=== PATIENT | male | born 1950 | race Caucasian/White ===

== ENCOUNTER → 2017-02-23 | Outpatient (CLI) | payer MEDICARE ==
--- NOTE | 2017-02-23 18:12 | PCVCIMAG ---
APPROVED REPORT Exam: Stress Echocardiogram Indication: Hyperlipidemia, Hypertension Patient Location: Echo lab Stress Nurse: Augusta Rossi RN Status: routine Ht: 5 ft 9 in HR: 85 bpm BP: 116/64 mmHg Rhythm: NSR Procedure The patient underwent an Exercise Stress Test using the Primo Protocol. Blood pressure, heart rate, and EKG were monitored. An Echocardiogram was performed by clinical dental technician in four stages in quad fashion. At peak stress, four selected images were obtained and placed side by side with resting images for comparison. Stress Test Details Stress Test: Exercise stress testing was performed using a Primo protocol. HR Resting HR: 85 bpmMax Heart Rate (APMHR): 154 bpm Max HR Achieved: 146 bpmTarget HR (85% APMHR): 130 bpm % of APMHR: 94 HR response to stress: Normal HR response to stress BP Resting BP: 116/64 mmHg Max BP: 154/64 mmHg ECG Resting ECG: Sinus Rhythm Stress ECG: Sinus Rhythm Clinical Reason for Termination: Maximal effort Exercise duration: 6 min 48 sec Highest Stage Achieved: Stage 3: 3.4 mph at 14% grade. Exercise capacity: 9.50 METs Overall Exercise Capacity for Age: Average Pre-Stress Echo The resting Echocardiogram showed normal left ventricular contractility with an estimated Ejection Fraction of about 55-60%. Normal wall motion in all segments on baseline images. Post-Stress Echo The stress Echocardiogram showed normal left ventricular contractility with an estimated Ejection Fraction of about 60-65%. Normal augmentation of wall motion in all segments on post stress images. Clinical No clinical or ECG evidence for ischemia. Conclusion Clinical Response: Non-ischemic Exercise Capacity: Average Stress ECG Response: Non-ischemic Stress Echo Images: Non-ischemic The left ventricle is normal in size and wall thickness in both the rest and stress images. Other Information Study Quality: Good <Conclusion> The left ventricle is normal in size and wall thickness in both the rest and stress images.
== END | disposition home or self-care (01) ==
LOC: PCVCIMAG 16:00
PROVIDERS: ATTEND Internal Medicine
DX: I10 Essential (primary) hypertension (principal); E78.5 Hyperlipidemia, unspecified
CPT/HCPCS: 93325; 93351